=== PATIENT | male | born 1990 | race Caucasian/White ===

== ENCOUNTER 2018-04-28 21:40 | Emergency (ER) | END 2018-04-29 02:05 | disposition home or self-care (01) ==

== ENCOUNTER 2018-11-02 05:51 | Emergency (ER) | payer SELFPAY ==
[~2018-11-02] VITALS: Ht 177.8 cm; Wt 89.5 kg
[~2018-11-02 05:51] MED LIST: ACET500C5 PO; DENIES; DIPH1TAB PO; GUAI473L22 PO; IBUP-1542 PO; NAPR-688 PO; ONDA4TAB14 PO; SODI126M NASAL
[2018-11-02 05:52] VITALS: BP 138/76; PULSE 68; RESP 18; Ht 177.8 cm; Wt 89.5 kg
[2018-11-02] MEDS ORDERED: NAPR-985 PO (08:04)
--- NOTE | 2018-11-02 09:34 | ERD ---
ER Documentation Chief Complaint Chief Complaint NIGHT SWEATS, INCREASED SWEATING, CHEST PRESSURE, LETHARGY X'S 2 WEEKS HPI 28-year-old male presenting with chest pressure and lethargy times 2 weeks. He states he has some night sweats that occur. He states that he has been boxing over the last 4 months and he is unsure if that is the cause of his chest pressure. He denies any radiating chest pain denies any shortness of breath or cough. Denies fevers. Medical history denies. Has not taken medications for symptoms. Surgical history appendectomy 11 years ago. Social history denies ROS All systems reviewed and are negative except as per history of present illness. Medications Home Meds Active Scripts Naproxen* (Naprosyn*) 500 Mg Tablet, 500 MG PO BID PRN for PAIN AND/OR INFLAMMATION, #30 TAB Prov:FABI PAEZ PA-C 11/02/18 Ondansetron (Ondansetron Odt) 4 Mg Tab.rapdis, 4 MG PO Q6H PRN for NAUSEA AND/OR VOMITING, #10 TAB Prov:RANDALL EISENBERG PA-C 04/29/18 Acetaminophen* (Tylophen*) 500 Mg Capsule, 1 CAP PO Q6H PRN for PAIN AND OR ELEVATED TEMP, #20 CAP Prov:RANDALL EISENBERG PA-C 04/29/18 Diphenoxylate HCl/Atropine (Lomotil 2.5-0.025 mg Tablet) 1 Each Tablet, 1 TAB PO Q6H PRN for DIARRHEA, #20 TAB Prov:TATI DAN DO 04/07/17 Naproxen* (Naproxen*) 500 Mg Tablet, 500 MG PO BID PRN for PAIN, #20 TAB Prov:TATI DAN DO 04/07/17 Ibuprofen* (Motrin*) 600 Mg Tab, 600 MG PO Q6H PRN for PAIN AND OR ELEVATED TEMP, #30 TAB Prov:ISABELL RUIZ NP 04/24/16 Guaifenesin-Codeine Phosphate* (Guaifenesin* AC Cough Syrup) 473 Ml Liquid, 5 ML PO Q4H PRN for COUGH, #120 ML Prov:ISABELL RUIZ NP 04/24/16 Sodium Chloride (Saline Nasal Mist) 126 Ml Mist, 2 SPRAY NASAL Q2H PRN for NASAL CONGESTION, #1 BOTTLE Prov:ISABELL RUIZ NP 04/24/16 Reported Medications [Denies] No Conflict Check 11/06/09 Allergies Allergies: Coded Allergies: No Known Drug Allergy (Verified Allergy, Unknown, 04/28/18) PMhx/Soc Medical and Surgical Hx: pt denies Medical Hx History of Surgery: Yes (appendectomy) Anesthesia Reaction: No Hx Neurological Disorder: No Hx Respiratory Disorders: No Hx Cardiac Disorders: No Hx Psychiatric Problems: No Hx Miscellaneous Medical Probl: No Hx Alcohol Use: No Hx Substance Use: No Hx Tobacco Use: No FmHx Family History: No diabetes, No coronary disease, No other Physical Exam Vitals Vital Signs Date Temp Pulse Resp B/P (MAP) Pulse Ox O2 O2 Flow FiO2 Time Delivery Rate 11/02/18 97.9 68 18 138/76 96 05:52 (96) Physical Exam GENERAL: The patient is well-appearing, well-nourished, in no acute distress HEENT: Atraumatic. Conjunctivae are pink. Pupils equal, round, and reactive to light. There is no scleral icterus. Tympanic membranes clear bilaterally. O ropharynx clear. NECK: C-spine is soft and supple. There is no meningismus. There is no cervical lymphadenopathy. CHEST: Clear to auscultation bilaterally. There are no rales, wheezes or rhonch i. HEART: Regular rate and rhythm. No murmurs, clicks, rubs or gallops. Result Diagram: 11/02/18 0638 11/02/18 0638 Results 24 hrs Laboratory Tests Test 11/02/18 06:38 White Blood Count 6.1 10^3/ul Red Blood Count 4.70 10^6/ul Hemoglobin 14.5 g/dl Hematocrit 43.2 % Mean Corpuscular Volume 91.9 fl Mean Corpuscular Hemoglobin 30.9 pg Mean Corpuscular Hemoglobin Concent 33.6 g/dl Red Cell Distribution Width 12.0 % Platelet Count 191 10^3/UL Mean Platelet Volume 10.5 fl Immature Granulocytes % 0.200 % Neutrophils % 48.9 % Lymphocytes % 35.2 % Monocytes % 10.7 % Eosinophils % 4.3 % Basophils % 0.7 % Nucleated Red Blood Cells % 0.0 /100WBC Immature Granulocytes # 0.010 10^3/ul Neutrophils # 3.0 10^3/ul Lymphocytes # 2.1 10^3/ul Monocytes # 0.7 10^3/ul Eosinophils # 0.3 10^3/ul Basophils # 0.0 10^3/ul Nucleated Red Blood Cells # 0.0 10^3/ul Urine Color YELLOW Urine Clarity SLIGHTLY CLOUDY Urine pH 5.0 Urine Specific [place] 1.029 Urine Ketones TRACE mg/dL Urine Nitrite NEGATIVE mg/dL Urine Bilirubin NEGATIVE mg/dL Urine Urobilinogen NEGATIVE mg/dL Urine Leukocyte Esterase NEGATIVE Sam/ul Urine Microscopic RBC 0 /HPF Urine Microscopic WBC 1 /HPF Urine Hemoglobin NEGATIVE mg/dL Urine Glucose NEGATIVE mg/dL Urine Total Protein NEGATIVE mg/dl Sodium Level 142 mmol/L Potassium Level 4.2 mmol/L Chloride Level 102 mmol/L Carbon Dioxide Level 28 mmol/L Anion Gap 12 Blood Urea Nitrogen 18 mg/dl Creatinine 0.68 mg/dl Est Glomerular Filtrat Rate mL/min > 60 mL/min Glucose Level 98 mg/dl Calcium Level 9.9 mg/dl Total Bilirubin 0.5 mg/dl Direct Bilirubin 0.00 mg/dl Indirect Bilirubin 0.5 mg/dl Aspartate Amino Transf (AST/SGOT) 26 IU/L Alanine Aminotransferase (ALT/SGPT) 32 IU/L Alkaline Phosphatase 48 IU/L Troponin I < 0.012 ng/ml Total Protein 7.7 g/dl Albumin 4.6 g/dl Globulin 3.10 g/dl Albumin/Globulin Ratio 1.48 Lipase 97 U/L Procedures/[facility] REPORT Patient: ANNE-MARIE PALUMBO : 1990 Age: 28 Sex: M MR #: [id number] DOS: 11/02/18 0633 Ordering MD: BRYANNA PAEZ PA-C Location: [facility] Room/Bed: PROCEDURE: CHEST CLINICAL INDICATION: 28-year-old male with abdominal pain. TECHNIQUE: AP upright views of the chest were obtained portably on two radiographs. . The images were reviewed on a PACS workstation. COMPARISON: CR PORTABLE CHEST 06/04/2008 FINDINGS: The cardiomediastinal silhouette has a normal appearance. There is no evidence for an infiltrate. The pulmonary vascularity is within normal limits. There is no evidence for pneumothorax or pneumomediastinum. The osseous structures are intact. IMPRESSION: No evidence for active cardiopulmonary disease. EKG: Rate/Rhythm: 60 bpm Normal Sinus Rhythm QRS, ST, T-waves: No changes consistent w/ acute ischemia Impression: No evidence of ischemia or arrhythmia MDM: 28-year-old male presenting with chest pressure. I have low suspicion for cardiac or pulmonary emergency. Blood work is within normal limits and imaging is within normal limits. Vitals are stable and patient's exam is non- concerning. Patient is discharged with supportive medications and recommended follow-up with primary care for close evaluation. Patient's blood work is within normal limits. Patient does have reproducible tenderness with chest palpation to he may have some musculoskeletal strain secondary to recent starting of boxing. All questions answered at discharge Departure Diagnosis: Primary Impression: Chest pain Condition: Stable Patient Instructions: Chest Pain, Uncertain Cause Referrals: [facility] YOU HAVE RECEIVED A MEDICAL SCREENING EXAM AND THE RESULTS INDICATE THAT YOU DO NOT HAVE A CONDITION THAT REQUIRES URGENT TREATMENT IN THE EMERGENCY DEPARTMENT. FURTHER EVALUATION AND TREATMENT OF YOUR CONDITION CAN WAIT UNTIL YOU ARE SEEN IN YOUR DOCTORS OFFICE WITHIN THE NEXT 1-2 DAYS. IT IS YOUR RESPONSIBILITY TO MAKE AN APPOINTMENT FOR FOLOW-UP CARE. IF YOU HAVE A PRIMARY DOCTOR --you should call your primary doctor and schedule an appointment IF YOU DO NOT HAVE A PRIMARY DOCTOR YOU CAN CALL OUR PHYSICIAN REFERRAL HOTLINE AT IF YOU CAN NOT AFFORD TO SEE A PHYSICIAN YOU CAN CHOSE FROM THE FOLLOWING [facility] [address] [facility]. [facility] [address] [facility] [facility] [address] [facility]. [facility] [address] [facility]. [facility] [address] [facility]. [facility]. [address] Additional Instructions: FOLLOW UP WITH YOUR PRIMARY CARE PHYSICIAN TOMORROW.Return to this facility if you are not improving as expected. FABI PAEZ PA-C Nov 02, 2018 09:34
== END 2018-11-02 08:17 | disposition home or self-care (01) ==
LOC: FTE 05:51
DX: R07.89 Other chest pain (principal)
CPT/HCPCS: 36415; 71045; 80053; 81001; 81003; 83690; 84484; 85025; 93005